=== PATIENT | male | born 1960 | race Hispanic/Latino ===

== ENCOUNTER 2020-10-12 10:39 | Observation (INO) | payer BC ==
[~2020-10-12] VITALS: Ht 175.3 cm; Wt 79.4 kg
[2020-10-12 11:03] VITALS: BP 146/75
[2020-10-12 11:11] LABS: HEMATOCRIT 40.5 % (42-54); MEAN CORPUSCULAR HEMOGLOBIN 29.9 pg (27.0-33.0); MEAN CORPUSCULAR HGB CONC 34.6 g/dL (32.0-36.0); MEAN CORPUSCULAR VOLUME 86.5 fL (79-99); PLATELET COUNT (AUTO) 213 K/uL (130-400); RED BLOOD CELL COUNT(AUTO) 4.68 MIL/uL (4.50-6.20); RED CELL DISTRIBUTION WIDTH 12.9 % (11.0-15.5); WHITE BLOOD COUNT (AUTO) 5.9 K/uL (4.8-10.8)
[2020-10-12 11:35] LABS: CREATININE 1.1 mg/dL (0.5-1.5); POTASSIUM 4.1 mmol/L (3.5-5.1)
[2020-10-12 11:38] LABS: B-TYPE NATRIURETIC PEPTIDE 48 pg/mL (0-100)
[2020-10-12 11:39] LABS: ALBUMIN 4.3 g/dL (3.5-5.0); BILIRUBIN,TOTAL 0.5 mg/dL (0.2-1.0); TOTAL PROTEIN, SERUM 7.4 g/dL (6.0-8.3)
[2020-10-12 11:46] LABS: BAND NEUTROPHILS % (MANUAL) 1 % (0-2); EOSINOPHILS % (MANUAL) 2 % (1-6); LYMPHOCYTES % (MANUAL) 27 % (22-44); MAN.DIFF COMMENT-IMPRESSION MANUAL DIFFERENTIAL; MONOCYTES % (MANUAL) 6 % (2-9); PLATELET MORPHOLOGY COMMENT ADEQUATE; REACTIVE LYMPHOCYTES 2 % (0-0); SEGMENTED NEUTROPHILS % 62 % (40-70)
[2020-10-12 12:21] VITALS: BP 151/68
[2020-10-12 13:05] VITALS: BP 143/80
[2020-10-12] MEDS ORDERED: ASPIRIN 325 MG TABLET PO SCH (13:15)
[2020-10-12] MEDS ORDERED: LABETALOL 20MG VIAL IV PRN (13:15)
[2020-10-12] MEDS ORDERED: LACTULOSE 20 GM/30 ML UDCUP PO PRN (13:15)
[2020-10-12] MEDS ORDERED: ONDANSETRON 4MG INJ IV PRN (13:15)
[2020-10-12] MEDS ORDERED: ACETAMINOPHEN 325 MG TAB PO PRN ×2 (13:15)
[2020-10-12 13:47] LABS: THYROID STIMULATING HORMONE 1.4 uIU/mL (0.36-3.74)
[2020-10-12 13:49] LABS: HEMOGLOBIN A1C 5.5 % (4.0-6.0)
[2020-10-12] MEDS ORDERED: ASPIRIN 81MG CHEW TAB ONE (14:39)
[2020-10-12] MEDS: NACL 0.9% 1000ML 1,000 ML IV SCH ×2 (14:40→18:44)
[2020-10-12 15:16] VITALS: BP 147/74
[2020-10-12 16:39] VITALS: BP 137/83
[2020-10-12 17:42] VITALS: BP 133/70
[2020-10-13] MEDS ORDERED: PANTOPRAZOLE 40 MG TAB DR PO SCH (09:00)
== END 2020-10-12 18:29 | disposition left against medical advice (07) ==
LOC: EDH 10:39 → EDHIP 13:15
PROVIDERS: ADMIT Internal Medicine; ATTEND Internal Medicine
DX: G45.9 Transient cerebral ischemic attack, unspecified (principal); R55 Syncope and collapse; R07.89 Other chest pain; R11.2 Nausea with vomiting, unspecified; R73.9 Hyperglycemia, unspecified
CPT/HCPCS: 36415; 70450; 70544; 70547; 70551; 71045; 80050; 80061; 82550; 83036; 83880; 84484 ×2; 85651; 92522; 92610; 93005; 93880; 96360; 96361; 99285; G0378 ×5; 80053; 84443; 85025

== ENCOUNTER → 2022-08-06 | Outpatient (CLI) | payer BC | END | disposition home or self-care (01) | LOC: SHCH 10:29 | PROVIDERS: ATTEND Student in an Organized Health Care Education/Training Program | DX: R55 Syncope and collapse (principal) | CPT/HCPCS: 93306 ==

== ENCOUNTER → 2022-09-29 | Outpatient (CLI) | payer BC ==
[~2022-09-29] MED LIST: IOHEXOL 350 MG/ML 100ML INFUS..BTL IV ONE
== END | disposition home or self-care (01) ==
LOC: RAH 11:25
PROVIDERS: ATTEND Student in an Organized Health Care Education/Training Program
DX: R55 Syncope and collapse (principal)
CPT/HCPCS: 75574; Q9967